=== PATIENT | female | born 1940 | race Caucasian/White ===

== ENCOUNTER 2017-03-02 16:01 | Inpatient (IN) | payer OTHER ==
[~2017-03-02] VITALS: Ht 154.9 cm; Wt 107.0 kg
[2017-03-02 16:01] VITALS: BP 141/66; PULSE 91; RESP 26; TEMP 98.9; O2SAT 96
[~2017-03-02 16:01] MED LIST: ALBMDI INH; ASPI81TA2 PO; CHOL100038 PO; CLOP75TA2 PO; ESOM40CA PO; FLUT1DIS INH; GABA-529 PO; HYDR-1189 PO; HYT1 PO; LEVO25TA58 PO; PLA200 PO; PRED5TAB PO; SPIR50TA PO; VALS80TA2 PO; VEN2 PO; [UNRECOGNIZED DRUG - OTHER] PO
--- NOTE | 2017-03-02 16:10 | NUR ---
Pt placed to ER bed 06, to gown and cardiac technician. Pt report given to SAMSON Burgos.
--- NOTE | 2017-03-02 16:12 | NUR ---
Alert and oriented x4. Daughter present. Patient states that she has had shortness of breath and non productive cough since . States was prescribed predisone and amoxicillin 1 week ago for bronchitis (not yet finished with medications), but "medically cleared by doctor" and did not feel short of breath at the time. Denies any chest pain, pressure, radiating pain, dizziness or palpitations. No other complaints/injuries per patient or noted.
--- NOTE | 2017-03-02 16:13 | NUR ---
RT at bedside starting breathing treatment
[2017-03-02] MEDS ORDERED: ALBUTEROL SULFATE 0.083% 2.5 MG/3 ML VIAL.NEB IH ONE ×2 (16:15→16:45)
[2017-03-02] MEDS ORDERED: IPRATROPIUM BROM 0.5 MG/2.5 ML VIAL.NEB (ATROVENT) IH ONE ×2 (16:15→16:45)
[2017-03-02] MEDS ORDERED: LEVO125T PO (16:44)
[2017-03-02] MEDS ORDERED: PRED5TAB PO (16:44)
[2017-03-02] MEDS ORDERED: methylPREDNISolone SOD SUCC/PF 62.5 MG/ML VIAL IVP ONE (16:45)
[2017-03-02] MEDS ORDERED: MAGNESIUM SULFATE 1 GM in NS 50 ML IV ONE (16:45)
--- NOTE | 2017-03-02 16:45 | NUR ---
Patient states that she is beginning to feel relief following breathing treatment
[2017-03-02 16:46] LABS: MONOCYTES # (AUTO) 0.5 K/uL (0.0-1.0); NEUTROPHILS # (AUTO) 7.7 K/uL (1.8-7.7); WHITE BLOOD COUNT (AUTO) 9.2 K/uL (4.8-10.8)
[2017-03-02] MEDS ORDERED: NITR0.4T6 SL (16:47)
[2017-03-02] MEDS ORDERED: NALT50TA PO (16:50)
[2017-03-02] MEDS ORDERED: CHOL200026 PO (16:50)
--- NOTE | 2017-03-02 16:50 | NUR ---
Medication reconciliation completed with information provided by patient. Any prior medication reconciliation on file was reviewed and corrected.
[2017-03-02 16:54] LABS: INR 1.1 (0.8-1.2); PROTHROMBIN TIME 11.9 SECS (9.5-12.5)
[2017-03-02] MEDS ORDERED: MAGNESIUM SULFATE 1 GM/2 ML VIAL ONE (17:00)
[2017-03-02] MEDS ORDERED: NS 250 ML IV ONE (17:00)
[2017-03-02 17:11] LABS: BASOPHILS % (AUTO) 0.2 % (0.0-2.0); EOSINOPHILS % (AUTO) 0.1 % (0.0-4.0); HEMATOCRIT 38.6 % (36-48); HEMOGLOBIN 12.5 g/dL (12.0-16.0); LYMPHOCYTES % (AUTO) 11.3 % (20.5-51.5); MEAN CORPUSCULAR HEMOGLOBIN 26 pg (27-31); MEAN CORPUSCULAR HGB CONC 32 % (32-36); MEAN CORPUSCULAR VOLUME 81 fL (79.0-98.0); MONOCYTES % (AUTO) 5.7 % (1.7-9.3); NEUTROPHILS % (AUTO) 82.7 % (40.0-70.0); PLATELET COUNT (AUTO) 190 K/uL (130-430); RED BLOOD CELL COUNT(AUTO) 4.75 MIL/uL (4.2-6.2); RED CELL DISTRIBUTION WIDTH 14.3 % (9.0-15.0)
[2017-03-02 17:13] LABS: BLOOD GAS PH 7.543 (7.350-7.450)
--- NOTE | 2017-03-02 17:13 | NUR ---
Per MD, fluids to be held at this time until labs resulted.
[2017-03-02 17:14] LABS: ABG TOTAL HEMOGLOBIN 13.4 G/dL (12.0-18.0); BLOOD GAS COHb% 0.8 % (0.5-1.5); BLOOD O2Hb% 95.1 % (94.0-97.0)
--- NOTE | 2017-03-02 17:15 | NUR ---
Urine to be collected following breathing treatment (RT at bedside). MD at bedside. Patient tolerating well.
--- NOTE | 2017-03-02 17:15 | NUR ---
Note aracelis in EDM - 03/02/17 at 1720 by SDEDAJ Urine to be collected following breathing treatment (RT at bedside). MD at bedside. Patient tolerating well.
[2017-03-02 17:18] LABS: ANION GAP 13 (5-15); CALCIUM 9.2 mg/dL (8.4-11.0); CHLORIDE 104 mmol/L (98-107); CREATININE 1.45 mg/dL (0.55-1.30); GLUCOSE 146 mg/dL (70-99); POTASSIUM 4.4 mmol/L (3.5-5.1); SODIUM SERUM 140 mmol/L (136-145); UREA NITROGEN, BLOOD 35 mg/dL (8-21)
[2017-03-02 17:25] LABS: ALANINE AMINOTRANSFERASE 10 U/L (12-78); ALBUMIN 3.8 g/dL (3.4-4.8); ASPARTATE AMINOTRANSFERASE 19 U/L (10-37); CREATINE KINASE, TOTAL 334 U/L (26-192); PHOSPHORUS 2.6 mg/dL (2.7-4.5); TOTAL BILIRUBIN 0.7 mg/dL (0.0-1.0); TOTAL PROTEIN, SERUM 6.8 g/dL (6.4-8.3)
[2017-03-02] MEDS ORDERED: ACETYLCYSTEINE 20% 4 ML VIAL (RT) INH ONE (17:30)
[2017-03-02 17:50] LABS: CKMB RELATIVE INDEX 0.7 (0.0-2.9); CREATINE KINASE MB 2.5 ng/mL (0-3.6)
[2017-03-02] MEDS: methylPREDNISolone SOD SUCC/PF 62.5 MG/ML VIAL IVP SCH ×2 (18:00→23:28)
[2017-03-02] MEDS ORDERED: FUROSEMIDE 20 MG/2 ML VIAL IVP ONE (18:00)
[2017-03-02] MEDS ORDERED: ONDANSETRON HCL 4 MG/2 ML VIAL IVP PRN (18:00)
[2017-03-02] MEDS ORDERED: IPRATROPIUM/ALBUTEROL SULFATE 3 ML AMPUL.NEB INH PRN (18:00)
--- NOTE | 2017-03-02 18:00 | NUR ---
Asked Dr. Benson if would like one time order of antibiotics prior to admission, stated will place order.
--- NOTE | 2017-03-02 18:05 | NUR ---
Patient stated that her primary doctor seperates administration of levaquin and plaquenil by a few days due to high risk of her getting interaction. Patient states last plaquenil dose was last night at 11PM. Dr. Benson notified, agreed to not administer for patient safety. Admission nurse Staci notified to check with Dr. Bernstein regarding order of levaquin to ensure patient safety. No new orders received at this time. Addendum: 03/02/17 at 1842 by DEBBIE No new order for administration of another antibiotic at this time per Dr. Benson due to patient's extensive history of allergies and high risk of receiving drug interation. Dr. Bernstein stated is checking patient's chart at [facility].
[2017-03-02] MEDS ORDERED: LEVOFLOXACIN 500 MG/D5W 100 ML IV ONE (18:15)
--- NOTE | 2017-03-02 18:15 | NUR ---
Unable to obtain urine sample, patient refused to urinate on bed loja/bedside commode or have a in and out catheter. Can not ambulate patient due to shortness of breath. Dr. Benson aware. Will endorse to tele admission nurse.
--- NOTE | 2017-03-02 18:29 | NUR ---
ADMISSION NOTE Received patient from ER via octavio, received report from Loretta DAVIES. Patient admitted with diagnosis of SOB,ASTHMATICUS,BRONCHITIS. Patient oriented to hospital routine, call light, toileting and safety-patient verbalized understanding.
[2017-03-02 18:41] VITALS: BP 136/55; PULSE 89; RESP 22; TEMP 98; O2SAT 96
--- NOTE | 2017-03-02 19:02 | NUR ---
Patient will be admitted to care of Dr. Bernstein. Admitted to tele unit. Will go to room 103A. Belongings list completed. Summary report printed. Report given to Staci DAVIES.
[2017-03-02] MEDS: IPRATROPIUM/ALBUTEROL SULFATE 3 ML AMPUL.NEB INH SCH ×2 (19:23→23:27)
[2017-03-02 19:36] VITALS: BP 136/55; PULSE 89
--- NOTE | 2017-03-02 19:45 | NUR ---
ROUNDS PATIENT IN BED, AWAKE, ALERT, ORIENTED, NOT IN DISTRESS, VITALS STABLE. DENIES ANY PAIN AND DISCOMFORT AT THIS TIME. ASSESSMENT DONE AND DOCUMENTED. SEE FLOWSHEET. NEEDS ATTENDED TO. SAFETY AND FALL PRECAUTION MEASURES IN PLACED. BED IN LOW AND LOCKED POSITION. CALL LIGHT PLACED WITHIN REACH.
--- NOTE | 2017-03-02 20:24 | NUR ---
NOTES ASSISTED PATIENT TO THE BEDSIDE COMMODE TO VOID, SENT URINE SPECIMEN TO LAB. WILL CONTINUE TO MONITOR.
[2017-03-02 20:30] LABS: BILIRUBIN,URINE NEGATIVE (NEGATIVE); BLOOD, URINE NEGATIVE (NEGATIVE); CLARITY/URINE CLEAR (CLEAR); COLOR,URINE YELLOW (YELLOW); GLUCOSE,URINE NEGATIVE (NEGATIVE); KETONES,URINE NEGATIVE (NEGATIVE); LEUKOCYTE ESTERASE ,URINE NEGATIVE (NEGATIVE); NITRITE, URINE NEGATIVE (NEGATIVE); PROTEIN URINE NEGATIVE (NEGATIVE); UROBILINOGEN,URINE 0.2 (0.2-1.0)
--- NOTE | 2017-03-02 20:41 | NUR ---
PAGED: I PAGED DR. BURDEN @ 2040 I SPOKE WITH PEG SEGURA MOTION PICTURE SET GRIP SHE CALLED US BACK @ [phone]
[2017-03-02] MEDS: guaiFENesin/DEXTROMETHORPHAN 1 EACH TAB.ER.12H PO SCH (21:00)
[2017-03-02] MEDS: GABAPENTIN 300 MG CAPSULE PO SCH (21:18)
[2017-03-02] MEDS: SPIRONOLACTONE 50 MG TABLET (ALDACTONE) PO SCH (21:21)
[2017-03-02] MEDS: ACETAMINOPHEN 325 MG TABLET PO PRN (21:25)
--- NOTE | 2017-03-02 21:59 | NUR ---
NOTES CALLED AND TALKED TO DR. SEO, THE E LEARNING SPECIALIST, GOT AN ORDER FOR LOVENOX 30 MG SUBCUT RECOMMENDED BY OUTSIDE PHARMACY SINCE PATIENT'S CRCL=24.65. WILL CONTINUE TO MONITOR.
[2017-03-02] MEDS: NORMAL SALINE 5 ML DISP.SYRIN IVF SCH (23:28)
--- NOTE | 2017-03-03 | NUR ---
PATIENT RESTING: Patient resting quietly. No acute distress noted. Vital signs within normal range.
[2017-03-03 00:19] VITALS: BP 121/71; PULSE 86; RESP 20; TEMP 96.1; O2SAT 95
--- NOTE | 2017-03-03 02:40 | NUR ---
ROUNDS PATIENT ASLEEP,VITALS STABLE, WILL CONTINUE TO MONITOR.
[2017-03-03] MEDS: IPRATROPIUM/ALBUTEROL SULFATE 3 ML AMPUL.NEB INH SCH ×6 (03:06→23:13)
--- NOTE | 2017-03-03 04:00 | NUR ---
PATIENT RESTING: Patient resting quietly. No acute distress noted. Vital signs within normal range.
[2017-03-03 04:42] VITALS: BP 154/65; PULSE 94; RESP 21; TEMP 97.6; O2SAT 95
[2017-03-03] MEDS: methylPREDNISolone SOD SUCC/PF 62.5 MG/ML VIAL IVP SCH ×4 (06:13→23:14)
[2017-03-03] MEDS: NORMAL SALINE 5 ML DISP.SYRIN IVF SCH ×3 (06:13→23:14)
[2017-03-03 06:57] LABS: BASOPHILS % (AUTO) 0.1 % (0.0-2.0); EOSINOPHILS % (AUTO) 0.1 % (0.0-4.0); HEMATOCRIT 37.1 % (36-48); HEMOGLOBIN 12.2 g/dL (12.0-16.0); LYMPHOCYTES # (AUTO) 0.8 K/uL (1.0-5.5); LYMPHOCYTES % (AUTO) 8.3 % (20.5-51.5); MEAN CORPUSCULAR HEMOGLOBIN 27 pg (27-31); MEAN CORPUSCULAR HGB CONC 33 % (32-36); MEAN CORPUSCULAR VOLUME 81 fL (79.0-98.0); MONOCYTES # (AUTO) 0.2 K/uL (0.0-1.0); NEUTROPHILS # (AUTO) 8.7 K/uL (1.8-7.7); NEUTROPHILS % (AUTO) 89.5 % (40.0-70.0); PLATELET COUNT (AUTO) 179 K/uL (130-430); RED BLOOD CELL COUNT(AUTO) 4.58 MIL/uL (4.2-6.2); WHITE BLOOD COUNT (AUTO) 9.7 K/uL (4.8-10.8)
--- NOTE | 2017-03-03 06:59 | NUR ---
CLOSING NOTES PATIENT AWAKE, VITALS STABLE, NO PAIN AND DISCOMFORT AT THIS TIME. ALL NEEDS ATTENDED TO. SAFETY AND FALL PRECAUTION MEASURES MAINTAINED. CALL LIGHT PLACED WITHIN REACH.
[2017-03-03] MEDS ORDERED: LEVOTHYROXINE SODIUM 0.125 MG TABLET PO SCH (07:00)
[2017-03-03 07:34] LABS: ANION GAP 12 (5-15); CALCIUM 9.2 mg/dL (8.4-11.0); CHLORIDE 102 mmol/L (98-107); CREATININE 1.35 mg/dL (0.55-1.30); GLUCOSE 221 mg/dL (70-99); PHOSPHORUS 3.9 mg/dL (2.7-4.5); SODIUM SERUM 138 mmol/L (136-145); UREA NITROGEN, BLOOD 34 mg/dL (8-21)
[2017-03-03 08:00] VITALS: PULSE 87; RESP 2; TEMP 98; O2SAT 95
--- NOTE | 2017-03-03 08:00 | NUR ---
initial notes rec patient awake alert and sitting at the edge of the bed. ivl on the l forearm intact and no infiltration noted. res easy and unlabored and no sob noted. with on and off productive cough. bed in low position and side rails up and locked. daughter in the room with patient and waiting for dr damico.
[2017-03-03] MEDS ORDERED: ENOXAPARIN SODIUM 40 MG/0.4 ML SYRINGE SUBCUT SCH (09:00)
[2017-03-03] MEDS ORDERED: VALSARTAN 80 MG TABLET (DIOVAN) PO SCH (09:00)
[2017-03-03] MEDS: CLOPIDOGREL BISULFATE 75 MG TABLET PO SCH (09:08)
[2017-03-03] MEDS: ASPIRIN 81 MG TAB.CHEW PO SCH (09:08)
[2017-03-03] MEDS: SPIRONOLACTONE 50 MG TABLET (ALDACTONE) PO SCH ×2 (09:09→21:25)
[2017-03-03] MEDS: ENOXAPARIN SODIUM 30 MG/0.3 ML SYRINGE SUBCUT SCH (09:10)
--- NOTE | 2017-03-03 10:00 | NUR ---
rounds seen by dr damico at bedside.no acute distress noted.
[2017-03-03] MEDS ORDERED: ISOSORBIDE MONONITRATE 30 MG TAB.ER.24H PO ONE (10:30)
[2017-03-03] MEDS ORDERED: TERAZOSIN HCL 1 MG CAPSULE (HYTRIN) PO ONE (10:45)
[2017-03-03 12:00] VITALS: BP 111/70; PULSE 79; RESP 22; TEMP 98; O2SAT 97
--- NOTE | 2017-03-03 12:00 | NUR ---
rounds denies pain. ambulated to the br and patrice well with a walker. call light within reached. no sob noted.
--- NOTE | 2017-03-03 12:21 | NUR ---
SPOKE WITH PT AT BEDSIDE. SHE IS ALERT. LIVE IN HOME. GRANDSON LIVES WITH HER AND ASSISTS NEEDED. SHE HAS A NEBUL AND A FWW. WILL FOLLOW HOSP COURSE/reggie kelly/peggy/[facility] [phone]
[2017-03-03] MEDS: guaiFENesin/DEXTROMETHORPHAN 1 EACH TAB.ER.12H PO SCH ×2 (13:40→21:26)
--- NOTE | 2017-03-03 14:00 | NUR ---
rounds resting comfortably and no sob noted.sleeps at intervals.
[2017-03-03 15:27] VITALS: BP 115/57; PULSE 82; RESP 19; TEMP 98; O2SAT 93
[2017-03-03] MEDS ORDERED: COMMUNICATION ORDER XX ONE (15:45)
--- NOTE | 2017-03-03 16:00 | NUR ---
rounds sleeps at intervals. no c/o pain . call light within reached.
[2017-03-03] MEDS: TERAZOSIN 1 MG PO SCH (17:25)
[2017-03-03] MEDS: LEVOFLOXACIN 250 MG/D5W 50 ML IV SCH (17:27)
--- NOTE | 2017-03-03 18:40 | NUR ---
closing notes due meds given as ordered.hob slightly elevated with o2 at 2 liters. no sob noted. with on and off productive cough. call light within reached. fall/ safety precaution reinforced.
--- NOTE | 2017-03-03 19:15 | NUR ---
initial nursing notes: Patient awake in bed. Patient is on 2L/min oxygen via nasal cannula. Patient has an IV access on the left forearm.
[2017-03-03 19:31] VITALS: BP 122/68; PULSE 86; RESP 18; TEMP 97.2; O2SAT 96
[2017-03-03] MEDS ORDERED: TERAZOSIN HCL 1 MG CAPSULE (HYTRIN) PO SCH (21:00)
--- NOTE | 2017-03-03 21:15 | NUR ---
nursing rounds: Patient is ambulatory to the bathroom using a walker. Patient has no episode of falls and no injuries.
[2017-03-03] MEDS: LACTOBACILLUS RHAMNOSUS GG 1 CAP CAPSULE PO SCH (21:26)
[2017-03-03] MEDS: GABAPENTIN 300 MG CAPSULE PO SCH (21:26)
[2017-03-03] MEDS: DIOVAN 80 MG PO SCH (21:27)
[2017-03-03] MEDS: ACETAMINOPHEN 325 MG TABLET PO PRN (23:10)
--- NOTE | 2017-03-03 23:15 | NUR ---
nursing rounds: Patient is receiving breathing treatment.
[2017-03-04] VITALS (7 sets, daily range): BP systolic 100–153; BP diastolic 48–85; PULSE 67–88; RESP 16–20; TEMP 97–98.6; O2SAT 91–99; Ht 154.9 cm; Wt 107.0 kg
--- NOTE | 2017-03-04 00:30 | NUR ---
nursing rounds: Patient received pain medication for her rib pain 01/17. Pain medication was effective.
[2017-03-04] MEDS: IPRATROPIUM/ALBUTEROL SULFATE 3 ML AMPUL.NEB INH SCH ×6 (02:18→23:28)
--- NOTE | 2017-03-04 02:30 | NUR ---
nursing rounds: Patient asleep in bed. Patient has no shortness of breath.
--- NOTE | 2017-03-04 04:30 | NUR ---
nursing rounds: Patient sleeping in bed. Patient has no respiratory distress.
[2017-03-04] MEDS: methylPREDNISolone SOD SUCC/PF 62.5 MG/ML VIAL IVP SCH ×4 (05:33→23:37)
[2017-03-04] MEDS: NORMAL SALINE 5 ML DISP.SYRIN IVF SCH ×3 (05:34→21:01)
--- NOTE | 2017-03-04 06:03 | NUR ---
nursing rounds: Patient calmly resting in bed. Call light within patient's reach.
--- NOTE | 2017-03-04 07:38 | NUR ---
closing nursing notes: Patient is awake, alert and oriented X 4. Patient is in no acute respiratory distress. No episodes of fall and no injuries throughout the cnc machinist 2nd shift. Provided nursing report to incoming morning shift nurses, SAMSON Blackwell, at patient's bedside.
[2017-03-04 07:47] LABS: BASOPHILS # (AUTO) 0.1 K/uL (0.0-0.2); BASOPHILS % (AUTO) 0.5 % (0.0-2.0); EOSINOPHILS % (AUTO) 0.1 % (0.0-4.0); HEMATOCRIT 37.6 % (36-48); HEMOGLOBIN 12.1 g/dL (12.0-16.0); LYMPHOCYTES # (AUTO) 0.9 K/uL (1.0-5.5); MEAN CORPUSCULAR HEMOGLOBIN 26 pg (27-31); MEAN CORPUSCULAR HGB CONC 32 % (32-36); MEAN CORPUSCULAR VOLUME 81 fL (79.0-98.0); MONOCYTES # (AUTO) 1.2 K/uL (0.0-1.0); MONOCYTES % (AUTO) 7.6 % (1.7-9.3); NEUTROPHILS # (AUTO) 13.6 K/uL (1.8-7.7); NEUTROPHILS % (AUTO) 85.8 % (40.0-70.0); PLATELET COUNT (AUTO) 199 K/uL (130-430); RED BLOOD CELL COUNT(AUTO) 4.63 MIL/uL (4.2-6.2); RED CELL DISTRIBUTION WIDTH 14.3 % (9.0-15.0)
[2017-03-04 07:53] LABS: ALANINE AMINOTRANSFERASE 25 U/L (12-78); ALBUMIN 3.5 g/dL (3.4-4.8); ANION GAP 7 (5-15); ASPARTATE AMINOTRANSFERASE 19 U/L (10-37); CALCIUM 9.1 mg/dL (8.4-11.0); CHLORIDE 103 mmol/L (98-107); CREATININE 1.41 mg/dL (0.55-1.30); GLUCOSE 198 mg/dL (70-99); POTASSIUM 3.9 mmol/L (3.5-5.1); SODIUM SERUM 137 mmol/L (136-145); TOTAL BILIRUBIN 0.7 mg/dL (0.0-1.0); TOTAL PROTEIN, SERUM 6.3 g/dL (6.4-8.3); UREA NITROGEN, BLOOD 38 mg/dL (8-21)
[2017-03-04 08:00] LABS: WHITE BLOOD COUNT (AUTO) 15.8 K/uL (4.8-10.8)
--- NOTE | 2017-03-04 08:00 | NUR ---
opening notes pt in bed, denies pain, no sob. no distress. patient is alert and oriented 4x, vitals wnl, afebrile. call light in reach, bed in low position, will continue to monitor.
[2017-03-04] MEDS: CLOPIDOGREL BISULFATE 75 MG TABLET PO SCH (09:17)
[2017-03-04] MEDS: ASPIRIN 81 MG TAB.CHEW PO SCH (09:18)
[2017-03-04] MEDS: ISOSORBIDE MONONITRATE 30 MG TAB.ER.24H PO SCH (09:18)
[2017-03-04] MEDS: LACTOBACILLUS RHAMNOSUS GG 1 CAP CAPSULE PO SCH ×2 (09:18→20:57)
[2017-03-04] MEDS: SPIRONOLACTONE 50 MG TABLET (ALDACTONE) PO SCH ×2 (09:19→20:58)
[2017-03-04] MEDS: ENOXAPARIN SODIUM 30 MG/0.3 ML SYRINGE SUBCUT SCH (09:19)
[2017-03-04] MEDS: TERAZOSIN 1 MG PO SCH ×2 (09:23→20:59)
[2017-03-04] MEDS: DIOVAN 80 MG PO SCH ×2 (09:24→20:59)
[2017-03-04] MEDS: guaiFENesin/DEXTROMETHORPHAN 1 EACH TAB.ER.12H PO SCH ×2 (09:25→20:59)
[2017-03-04] MEDS: LEVOTHYROXINE 0.125 MG PO SCH (09:33)
--- NOTE | 2017-03-04 10:00 | NUR ---
rounding notes pt in bed, denies pain, no sob. no distress. resting comfortably in bed. visitor at bedside. call light in reach, bed in low position, will continue to monitor.
--- NOTE | 2017-03-04 14:00 | NUR ---
rounding notes pt in bed, denies pain, no sob. no distress. resting comfortably in bed. visitor at bedside.
[2017-03-04] MEDS: SODIUM CHLORIDE 0.65% NASAL SPRAY NS PRN ×2 (15:04→21:01)
[2017-03-04] MEDS: LEVOFLOXACIN 250 MG/D5W 50 ML IV SCH (17:31)
--- NOTE | 2017-03-04 18:10 | NUR ---
closing nursing notes: Patient AAOX 4. Patient is in no acute respiratory distress. No untoward incident this shift. all morning shift meds offered and taken. bed in low positon.call light in reach. will endorse to night rn.
--- NOTE | 2017-03-04 20:05 | NUR ---
OPENING NOTES PATIENT IS A/OX4. NO SIGN OF DISTRESS. BREATHING IS NON LABORED. IV IS PATENT AND SHOWS NO SIGNS OF COMPLICATIONS. VITAL SIGNS ARE STABLE. O2 IS ON AND FLOWING. WALKER IS AT BEDSIDE. PATIENT INSTRUCTED TO CALL FOR ASSISTANCE. SAFETY MEASURES ARE IN PLACE. PATIENT REFUSED BED ALARM. PATIENT STATED THAT HER DAUGHTER IS STAYING TO HELP HER. CALL LIGHT IS WITHIN REACH. DAUGHTER IS AT BEDSIDE. WILL CONTINUE TO MONITOR.
[2017-03-04] MEDS: GABAPENTIN 300 MG CAPSULE PO SCH (20:57)
--- NOTE | 2017-03-04 21:15 | NUR ---
ROUNDS PATIENT AMBULATED TO THE RESTROOM AND BACK INTO WITH USE OF A WALKER. GAIT IS STEADY WITH WALKER. PATIENT IS IN BED RESTING COMFORTABLY.
--- NOTE | 2017-03-04 22:47 | NUR ---
ROUNDS PATIENT IS IN BED SITTING UP WATCHING TV. NO SIGNS OF DISTRESS. BREATHING IS NON LABORED. O2 IS ON AND FLOWING. SAFETY MEASURES ARE IN PLACE. WILL CONTINUE TO MONITOR.
[2017-03-04] MEDS: ACETAMINOPHEN 325 MG TABLET PO PRN (23:38)
[2017-03-05] VITALS (8 sets, daily range): BP systolic 116–141; BP diastolic 51–75; PULSE 73–93; RESP 17–19; TEMP 96.8–98.8; O2SAT 93–95
--- NOTE | 2017-03-05 01:01 | NUR ---
ROUNDS PATIENT IS IN BED RESTING. NO SIGNS OF DISTRESS. BREATHING IS NON LABORED. CALL LIGHT IS WITHIN REACH. SAFETY MEASURES ARE IN PLACE. WILL CONTINUE TO MONITOR.
--- NOTE | 2017-03-05 03:29 | NUR ---
ROUNDS PATIENT IS IN BED SLEEPING. NO SIGNS OF DISTRESS. BREATHING IS NON LABORED. O2 IS ON AND FLOWING. SAFETY MEASURES ARE IN PLACE. DAUGHTER IS SLEEPING AT BEDSIDE. CALL LIGHT IS WITHIN REACH. WILL CONTINUE TO MONITOR.
[2017-03-05] MEDS: IPRATROPIUM/ALBUTEROL SULFATE 3 ML AMPUL.NEB INH SCH ×6 (03:42→22:07)
--- NOTE | 2017-03-05 05:35 | NUR ---
ROUNDS PATIENT IS IN BED SLEEPING. BREATHING IS NON LABORED. NO SIGNS OF DISTRESS. O2 IS ON AND FLOWING. SAFETY MEASURES ARE IN PLACE. CALL LIGHT IS WITHIN REACH. DAUGHTER IS AT BEDSIDE. WILL CONTINUE TO MONITOR.
[2017-03-05] MEDS: methylPREDNISolone SOD SUCC/PF 62.5 MG/ML VIAL IVP SCH ×4 (06:08→23:54)
[2017-03-05] MEDS: NORMAL SALINE 5 ML DISP.SYRIN IVF SCH ×3 (06:08→21:04)
[2017-03-05] MEDS: LEVOTHYROXINE 0.125 MG PO SCH (06:09)
[2017-03-05] MEDS: SODIUM CHLORIDE 0.65% NASAL SPRAY NS PRN ×3 (06:10→17:27)
--- NOTE | 2017-03-05 06:36 | NUR ---
CLOSING NOTES PATIENT IS IN BED SITTING UP AND TALKING TO DAUGHTER. NO SIGNS OF DISTRESS. BREATHING IS NON LABORED. O2 IS ON AND FLOWING. IV IS PATENT AND SHOWS NO SIGNS OF COMPLICATIONS. SAFETY MEASURES ARE IN PLACE. CALL LIGHT IS WITHIN REACH. WILL ENDORSE ALL CARE TO THE MORNING NURSE.
[2017-03-05 07:39] LABS: HEMATOCRIT 37.8 % (36-48); HEMOGLOBIN 12.6 g/dL (12.0-16.0); MEAN CORPUSCULAR HEMOGLOBIN 27 pg (27-31); MEAN CORPUSCULAR HGB CONC 33 % (32-36); MEAN CORPUSCULAR VOLUME 81 fL (79.0-98.0); PLATELET COUNT (AUTO) 199 K/uL (130-430); RED BLOOD CELL COUNT(AUTO) 4.68 MIL/uL (4.2-6.2); RED CELL DISTRIBUTION WIDTH 13.9 % (9.0-15.0); WHITE BLOOD COUNT (AUTO) 12.3 K/uL (4.8-10.8)
[2017-03-05 07:52] LABS: ANION GAP 9 (5-15); CALCIUM 9.2 mg/dL (8.4-11.0); CHLORIDE 102 mmol/L (98-107); CREATININE 1.63 mg/dL (0.55-1.30); GLUCOSE 207 mg/dL (70-99); SODIUM SERUM 135 mmol/L (136-145); UREA NITROGEN, BLOOD 39 mg/dL (8-21)
--- NOTE | 2017-03-05 08:00 | NUR ---
OPENING NOTES, RECEIVED PATIENT IN BED, PATIENT IS A/OX4. NO SIGN OF DISTRESS. NO SHORTNESS OF BREATH. IV IS PATENT AND SHOWS NO SIGNS OF COMPLICATIONS. VITAL SIGNS ARE STABLE, WNL. O2 IS OFF O2 SAT IS 88. CONNECTED BACK TO O2 2L NC, O2 SAT DANIEL T UP TO 94%. WALKER IS AT BEDSIDE. PATIENT INSTRUCTED TO CALL FOR ASSISTANCE. SAFETY MEASURES ARE IN PLACE. PATIENT BED ALARM ON, CALL LIGHT IN REACH, BED IN LOW POSITION. WILL CONTINUE TO MONITOR.
[2017-03-05] MEDS: TERAZOSIN 1 MG PO SCH ×2 (08:15→21:03)
[2017-03-05] MEDS: DIOVAN 80 MG PO SCH ×2 (08:16→21:02)
[2017-03-05] MEDS: LACTOBACILLUS RHAMNOSUS GG 1 CAP CAPSULE PO SCH ×2 (08:18→21:01)
[2017-03-05] MEDS: guaiFENesin/DEXTROMETHORPHAN 1 EACH TAB.ER.12H PO SCH ×2 (08:18→21:02)
[2017-03-05] MEDS: CLOPIDOGREL BISULFATE 75 MG TABLET PO SCH (08:19)
[2017-03-05] MEDS: SPIRONOLACTONE 50 MG TABLET (ALDACTONE) PO SCH ×2 (08:19→21:02)
[2017-03-05] MEDS: ISOSORBIDE MONONITRATE 30 MG TAB.ER.24H PO SCH (08:20)
[2017-03-05] MEDS: ENOXAPARIN SODIUM 30 MG/0.3 ML SYRINGE SUBCUT SCH (08:21)
[2017-03-05] MEDS: ASPIRIN 81 MG TAB.CHEW PO SCH (08:21)
--- NOTE | 2017-03-05 10:00 | NUR ---
ROUNDING NOTES PT IN BED, DENIES PAIN, NO SOB, RESTING COMFORTABLY IN BED, CALL LIGHT IN REACH, BED IN LOW POSITION. WALKER NEAR BED. INSTRUCTED TO CALL FOR PAIN MED AND ANY ASSISTANCE ANYTIME.
[2017-03-05 10:16] LABS: ATYPICAL LYMPHOCYTES % 0 % (0-0); BAND % (MANUAL) 0 % (0-6); BASOPHILS % (MANUAL) 0 % (0-2); EOSINOPHILS % (MANUAL) 0 % (0-7); LYMPHOCYTES % (MANUAL) 6 % (20-46); MONOCYTES % (MANUAL) 5 % (0-11)
--- NOTE | 2017-03-05 12:00 | NUR ---
ROUNDING NOTES, PT IN BED, NO C/O PAIN THIS TIME. NO SOB, NO DISTRESS, CALL LIGHT IN REACH, BED IN LOW POSITION. INSTRUCTED TO CALL FOR ASSIST AND PAIN MED. WILL CONTINUE TO MONITOR.
--- NOTE | 2017-03-05 14:00 | NUR ---
ROUNDING NOTES, PT IN BED,DENIES PAIN. NO SOB, NO DISTRESS, CALL LIGHT IN REACH, BED IN LOW POSITION. IV ACCESS FLUSHED. INSTRUCTED TO CALL FOR ASSIST AND PAIN MED. WILL CONTINUE TO MONITOR.
--- NOTE | 2017-03-05 16:07 | NUR ---
ROUNDING NOTES, PT IN BED, VISITOR AT BEDSIDE. NO PAIN THIS TIME. NO SOB, NO DISTRESS, CALL LIGHT IN REACH, BED IN LOW POSITION. INSTRUCTED TO CALL FOR ASSIST AND PAIN MED. WILL CONTINUE TO MONITOR.
[2017-03-05] MEDS: LEVOFLOXACIN 250 MG/D5W 50 ML IV SCH (17:25)
--- NOTE | 2017-03-05 18:00 | NUR ---
CLOSING NOTES, PT IS ALERT AND ORIENTED, DENIES PAIN , NO SOB, NO DISTRESS, NO UNTOWARD INCIDENT THIS SHIFT. ALL MEDS OFFERED AND TAKEN. CALL LIGHT IN REACH, BED IN LOW POSITION. SAFETY AND FALL PRECAUTION IN PLACE. WILL ENDORSE TO NIGHT NURSE.
--- NOTE | 2017-03-05 20:07 | NUR ---
OPENING NOTES PATIENT IS A/OX4. NO SIGNS OF DISTRESS. BREATHING IS NON LABORED. O2 IS ON AND FLOWING. VITAL SIGNS ARE STABLE. PATIENT HAS NO COMPLAINTS OF PAIN. PATIENT INSTRUCTED TO CALL FOR ASSISTANCE. CALL LIGHT IS WITHIN REACH. SAFETY MEASURES ARE IN PLACE. PATIENT REFUSES BED ALARM. PATIENT STATED THAT HER SON IS HELPING HER. WILL CONTINUE TO MONITOR.
[2017-03-05] MEDS: GABAPENTIN 300 MG CAPSULE PO SCH (21:01)
--- NOTE | 2017-03-05 21:15 | NUR ---
ROUNDS PATIENT WAS GIVEN APPLESAUCE.
--- NOTE | 2017-03-05 22:10 | NUR ---
ROUNDS PATIENT IS IN BED RESTING COMFORTABLY AND WATCHING TV. NO SIGNS OF DISTRESS. BREATHING IS NON LABORED. O2 IS ON FLOWING. SAFETY MEASURES ARE IN PLACE. CALL LIGHT IS WITHIN REACH. WILL CONTINUE TO MONITOR.
--- NOTE | 2017-03-05 23:50 | NUR ---
ROUNDS PATIENT IS RESTING COMFORTABLY. NO SIGNS OF DISTRESS. BREATHING IS NON LABORED. SAFETY MEASURES ARE IN PLACE. CALL LIGHT IS WITHIN REACH. DAUGHTER IS AT BEDSIDE SLEEPING IN A CHAIR. WILL CONTINUE TO MONITOR.
[2017-03-06] MEDS: IPRATROPIUM/ALBUTEROL SULFATE 3 ML AMPUL.NEB INH SCH ×6 (02:11→23:20)
--- NOTE | 2017-03-06 02:40 | NUR ---
ROUNDS PATIENT IS IN BED SLEEPING. NO SIGNS OF DISTRESS. BREATHING IS NON LABORED. SAFETY MEASURES ARE IN PLACE. CALL LIGHT IS WITHIN REACH. DAUGHTER IS AT BEDSIDE.
[2017-03-06 05:10] VITALS: BP 120/62; PULSE 73; RESP 16; TEMP 98.8; O2SAT 93
--- NOTE | 2017-03-06 05:27 | NUR ---
ROUNDS PATIENT IS IN BED SLEEPING. NO SIGNS OF DISTRESS. BREATHING IS NON LABORED. SAFETY MEASURES ARE IN PLACE. WILL CONTINUE TO MONITOR. DAUGHTER IS AT BEDSIDE.
[2017-03-06] MEDS: SODIUM CHLORIDE 0.65% NASAL SPRAY NS PRN ×3 (06:20→17:41)
[2017-03-06] MEDS: methylPREDNISolone SOD SUCC/PF 62.5 MG/ML VIAL IVP SCH ×4 (06:20→23:09)
[2017-03-06] MEDS: LEVOTHYROXINE 0.125 MG PO SCH (06:21)
[2017-03-06] MEDS: NORMAL SALINE 5 ML DISP.SYRIN IVF SCH ×3 (06:22→20:57)
--- NOTE | 2017-03-06 06:57 | NUR ---
CLOSING NOTES PATIENT IS IN BED SITTING UP AND RESTING COMFORTABLY. NO SIGNS OF DISTRESS. BREATHING IS NON LABORED. O2 IS ON AND FLOWING. CALL LIGHT IS WITHIN REACH. SAFETY MEASURES ARE IN PLACE. DAUGHTER IS AT BEDSIDE. WILL ENDORSE ALL CARE TO THE MORNING NURSE.
--- NOTE | 2017-03-06 07:25 | NUR ---
AM ROUNDS: PATIENT ON BREATHING TREATMENT.REPORT GIVEN AT BEDSIDE BY ROBERT JOHNSON NURSE. CALL LIGHT WITH IN REACH. STABLE.
[2017-03-06 07:29] LABS: HEMATOCRIT 38.4 % (36-48); HEMOGLOBIN 12.5 g/dL (12.0-16.0); LYMPHOCYTES # (AUTO) 0.7 K/uL (1.0-5.5); LYMPHOCYTES % (AUTO) 5.4 % (20.5-51.5); MEAN CORPUSCULAR HEMOGLOBIN 26 pg (27-31); MEAN CORPUSCULAR HGB CONC 33 % (32-36); MEAN CORPUSCULAR VOLUME 81 fL (79.0-98.0); MONOCYTES # (AUTO) 0.6 K/uL (0.0-1.0); NEUTROPHILS % (AUTO) 89.6 % (40.0-70.0); PLATELET COUNT (AUTO) 184 K/uL (130-430); RED BLOOD CELL COUNT(AUTO) 4.76 MIL/uL (4.2-6.2); RED CELL DISTRIBUTION WIDTH 14.3 % (9.0-15.0); WHITE BLOOD COUNT (AUTO) 12.3 K/uL (4.8-10.8)
[2017-03-06 07:48] LABS: ANION GAP 5 (5-15); CALCIUM 9.2 mg/dL (8.4-11.0); CHLORIDE 105 mmol/L (98-107); CREATININE 1.34 mg/dL (0.55-1.30); GLUCOSE 221 mg/dL (70-99); POTASSIUM 4.4 mmol/L (3.5-5.1); SODIUM SERUM 138 mmol/L (136-145); UREA NITROGEN, BLOOD 37 mg/dL (8-21)
[2017-03-06 09:14] VITALS: BP 135/64; PULSE 89; RESP 20; TEMP 99.3; O2SAT 96
[2017-03-06] MEDS: ASPIRIN 81 MG TAB.CHEW PO SCH (09:15)
[2017-03-06] MEDS: ISOSORBIDE MONONITRATE 30 MG TAB.ER.24H PO SCH (09:16)
[2017-03-06] MEDS: LACTOBACILLUS RHAMNOSUS GG 1 CAP CAPSULE PO SCH ×2 (09:16→20:57)
[2017-03-06] MEDS: CLOPIDOGREL BISULFATE 75 MG TABLET PO SCH (09:16)
[2017-03-06] MEDS: SPIRONOLACTONE 50 MG TABLET (ALDACTONE) PO SCH ×2 (09:16→20:57)
[2017-03-06] MEDS: TERAZOSIN 1 MG PO SCH ×2 (09:17→20:58)
[2017-03-06] MEDS: DIOVAN 80 MG PO SCH ×2 (09:17→20:57)
[2017-03-06] MEDS: guaiFENesin/DEXTROMETHORPHAN 1 EACH TAB.ER.12H PO SCH ×2 (09:18→20:56)
[2017-03-06] MEDS: ENOXAPARIN SODIUM 30 MG/0.3 ML SYRINGE SUBCUT SCH (09:18)
--- NOTE | 2017-03-06 09:38 | NUR ---
meds: tolerated all po meds. needs attended to.
--- NOTE | 2017-03-06 10:28 | NUR ---
rounds: assisted patient to the restroom using fww. voided. back to the bed.
--- NOTE | 2017-03-06 11:53 | NUR ---
iv meds: due iv solumedrol given as ordered.ocean nasal spray given per patient's request for congestion.
[2017-03-06 12:59] VITALS: BP 132/70; PULSE 79; RESP 18; TEMP 98; O2SAT 92
--- NOTE | 2017-03-06 14:15 | NUR ---
rounds: assisted to the restroom with assisted fww,then back to bed. stable.
--- NOTE | 2017-03-06 16:20 | NUR ---
rounds: resting. not in any respiratory distress.
[2017-03-06 16:48] VITALS: BP 131/65; PULSE 88; RESP 18; TEMP 98.8; O2SAT 95
[2017-03-06] MEDS: LEVOFLOXACIN 250 MG/D5W 50 ML IV SCH (17:30)
--- NOTE | 2017-03-06 17:43 | NUR ---
meal: dinner served by bark grinder.
--- NOTE | 2017-03-06 18:41 | NUR ---
closing notes: stable. no distress.
[2017-03-06 20:00] VITALS: BP 140/63; PULSE 82; RESP 18; TEMP 97.5; O2SAT 93
--- NOTE | 2017-03-06 20:00 | NUR ---
Initial Notes Received patient laying in bed, awake, alert, oriented. Patient denies any acute distress or pain at this time. Vital signs stable. Breathing is even and unlabored on room air, patent refusing supplemental oxygen at this time. IV site patent/clean/dry. Needs addressed. Educated patient on use of call light for assistance and fall precautions, patient verbalized understanding. Walker at bedside, patient verbalized understanding to call for assistance before getting out of bed. Call light in hand, will continue to monitor.
[2017-03-06] MEDS: GABAPENTIN 300 MG CAPSULE PO SCH (20:56)
--- NOTE | 2017-03-06 22:00 | NUR ---
Rounds Patient resting in bed, awake. Patient denies any acute distress or pain at this time. Breathing even and unlabored. Needs addressed. Call light in hand, will continue to monitor.
[2017-03-07] VITALS: BP 121/58; PULSE 71; RESP 18; TEMP 98; O2SAT 96
--- NOTE | 2017-03-07 | NUR ---
Rounds Patient resting in bed, awake, daughter at bedside. Patient denies any acute distress or pain. Breathing is even and unlabored. Needs addressed. Call light in hand, fall precautions in place. Will continue to monitor.
--- NOTE | 2017-03-07 02:07 | NUR ---
Rounds Patient resting in bed with eyes closed, family at bedside. No distress noted, breathing is even and unlabored. Call light in hand, fall precautions in place. Will continue to monitor for changes and safety.
[2017-03-07] MEDS: IPRATROPIUM/ALBUTEROL SULFATE 3 ML AMPUL.NEB INH SCH ×3 (03:35→11:00)
--- NOTE | 2017-03-07 04:26 | NUR ---
Rounds Patient resting in bed with eyes closed, family at bedside. No acute distress noted, breathing is even and unlabored. Call light in hand, will continue to monitor.
[2017-03-07] MEDS: methylPREDNISolone SOD SUCC/PF 62.5 MG/ML VIAL IVP SCH (05:14)
[2017-03-07 05:15] VITALS: BP 125/60; PULSE 81; RESP 18; TEMP 97.6; O2SAT 92
[2017-03-07] MEDS: NORMAL SALINE 5 ML DISP.SYRIN IVF SCH (05:15)
[2017-03-07] MEDS: LEVOTHYROXINE 0.125 MG PO SCH (06:05)
--- NOTE | 2017-03-07 06:31 | NUR ---
Closing Notes Patient resting in bed, awake, family at bedside. Patient denies any acute distress or pain at this time. Breathing is even and unlabored. IV site patent/clean/dry, no S/S infection/infiltration. Needs addressed throughout shift. Call light in hand, fall precautions in place. Will continue to monitor for changes and safety, and endorse all patient care/needs to oncoming nurse.
[2017-03-07 07:21] LABS: BASOPHILS % (AUTO) 0.1 % (0.0-2.0); HEMATOCRIT 37.8 % (36-48); HEMOGLOBIN 12.3 g/dL (12.0-16.0); LYMPHOCYTES # (AUTO) 0.9 K/uL (1.0-5.5); LYMPHOCYTES % (AUTO) 8.4 % (20.5-51.5); MEAN CORPUSCULAR HEMOGLOBIN 26 pg (27-31); MEAN CORPUSCULAR HGB CONC 33 % (32-36); MEAN CORPUSCULAR VOLUME 81 fL (79.0-98.0); MONOCYTES # (AUTO) 0.2 K/uL (0.0-1.0); MONOCYTES % (AUTO) 1.5 % (1.7-9.3); NEUTROPHILS # (AUTO) 9.9 K/uL (1.8-7.7); PLATELET COUNT (AUTO) 178 K/uL (130-430); RED BLOOD CELL COUNT(AUTO) 4.66 MIL/uL (4.2-6.2)
[2017-03-07 07:38] LABS: ANION GAP 6 (5-15); CHLORIDE 105 mmol/L (98-107); CREATININE 1.38 mg/dL (0.55-1.30); GLUCOSE 232 mg/dL (70-99); POTASSIUM 4.6 mmol/L (3.5-5.1); SODIUM SERUM 137 mmol/L (136-145); UREA NITROGEN, BLOOD 41 mg/dL (8-21)
--- NOTE | 2017-03-07 08:00 | NUR ---
OPENING NOTE RECEIVED REPORT FROM TRANSCRIPTION TYPIST NURSE. PATIENT RESTING COMFORTABLY, NO COMPLAINTS OF PAIN AT THIS TIME. PATIENT HAS NO NOTABLE SIGNS OF DISTRESS AT THIS TIME. PATIENTS BED IN LOWEST POSITION, FAMILY AT BEDSIDE, CALL LIGHT WITHIN REACH. WILL CONTINUE TO MONITOR PATIENT FOR CHANGES IN STATUS.
[2017-03-07] MEDS: DIOVAN 80 MG PO SCH (08:41)
[2017-03-07] MEDS: ENOXAPARIN SODIUM 30 MG/0.3 ML SYRINGE SUBCUT SCH (08:41)
[2017-03-07] MEDS: CLOPIDOGREL BISULFATE 75 MG TABLET PO SCH (08:42)
[2017-03-07] MEDS: LACTOBACILLUS RHAMNOSUS GG 1 CAP CAPSULE PO SCH (08:42)
[2017-03-07] MEDS: guaiFENesin/DEXTROMETHORPHAN 1 EACH TAB.ER.12H PO SCH (08:42)
[2017-03-07] MEDS: SPIRONOLACTONE 50 MG TABLET (ALDACTONE) PO SCH (08:42)
[2017-03-07] MEDS: ASPIRIN 81 MG TAB.CHEW PO SCH (08:43)
[2017-03-07] MEDS: ISOSORBIDE MONONITRATE 30 MG TAB.ER.24H PO SCH (08:43)
[2017-03-07] MEDS: TERAZOSIN 1 MG PO SCH (08:44)
--- NOTE | 2017-03-07 09:18 | NUR ---
Nutrition Update Marlon Scale 18 noted. Pt admitted for SOB, asthmaticus bronchitis. Diet: CCHO, 2 gm Na BMI: 44.6 kg/m2 RD to follow per nutrition care standards.
--- NOTE | 2017-03-07 10:27 | NUR ---
Faxed DC order Home to [phone] Filed fax confirmation in binder.
[2017-03-07 10:44] VITALS: BP 142/68; PULSE 79; RESP 20; TEMP 98
--- NOTE | 2017-03-07 10:47 | NUR ---
1000 ROUNDS PATIENT RESTING COMFORTABLY, NO COMPLAINTS OF PAIN AT THIS TIME. PATIENT HAS NO NOTABLE SIGNS OF DISTRESS AT THIS TIME. PATIENTS BED IN LOWEST POSITION, FAMILY AT BEDSIDE, CALL LIGHT WITHIN REACH. WILL CONTINUE TO MONITOR PATIENT FOR CHANGES IN STATUS.
[2017-03-07 11:09] VITALS: BP 142/68; PULSE 79; RESP 20; TEMP 98; O2SAT 94
--- NOTE | 2017-03-07 12:15 | NUR ---
DISCHARGE PATIENT DISCHARGED, ALERT AND ORIENTED, NO COMPLAINTS OF PAIN. PATIENT BELONGINGS SENT WITH DAUGHTER YAHAIRA AND PATIENT. PATIENT GIVEN DISCHARGE TEACHING, PATIENT VERBALIZED UNDERSTANDING. PATIENTS HOME MEDICATIONS WERE SENT FROM [facility] AND PHARMACY. PRESCRIPTION SENT WITH FAMILY. IV DISCONTINUED, ARM BANDS REMOVED. PATIENT WHEELED OUT BY ROTOR CASTING MACHINE OPERATOR.
[2017-03-07 12:22] VITALS: BP 140/67; PULSE 77; RESP 18; TEMP 96.8; O2SAT 93
--- NOTE | 2017-03-13 09:30 | NUR ---
Discharge Follow Up Phone Call [employer] phoned patient, , on 03/11/17, 03/12/17, and 03/13/17 and left voicemail messages with offer of assistance and Social Service contact information. No further calls will be made; [employer] will remain available.
== END 2017-03-07 12:12 | disposition home or self-care (01) | DRG 191 ==
LOC: SED 16:01 → STU 17:54 → SMU 03-03 11:08
PROVIDERS: ADMIT Internal Medicine; ATTEND Internal Medicine
DX: J44.1 Chronic obstructive pulmonary disease with (acute) exacerbation (principal); I13.0 Hypertensive heart and chronic kidney disease with heart failure and stage 1 through stage 4 chronic kidney disease, or unspecified chronic kidney disease; Z68.41 Body mass index [BMI] 40.0-44.9, adult; I50.9 Heart failure, unspecified; J84.10 Pulmonary fibrosis, unspecified; K21.9 Gastro-esophageal reflux disease without esophagitis; M06.9 Rheumatoid arthritis, unspecified; N18.3 Chronic kidney disease, stage 3 (moderate); I25.10 Atherosclerotic heart disease of native coronary artery without angina pectoris; E03.9 Hypothyroidism, unspecified; E66.9 Obesity, unspecified; K57.90 Diverticulosis of intestine, part unspecified, without perforation or abscess without bleeding; Z90.49 Acquired absence of other specified parts of digestive tract; Z88.2 Allergy status to sulfonamides; Z88.8 Allergy status to other drugs, medicaments and biological substances; Z88.6 Allergy status to analgesic agent; Z88.4 Allergy status to anesthetic agent; Z91.040 Latex allergy status; Z91.013 Allergy to seafood; Z79.899 Other long term (current) drug therapy; Z86.73 Personal history of transient ischemic attack (TIA), and cerebral infarction without residual deficits; Z90.710 Acquired absence of both cervix and uterus
CPT/HCPCS: 36415; 36600; 71010; 80048; 80053; 81003; 82550-TC; 82553-TC; 82803-TC; 83605; 83735-TC; 83880; 84100-TC; 84484; 85007; 85025; 85027; 85610-TC; 85730-TC; 87040-TC; 93005; 94640; 94760; 96365; 96375; 99285; J1650; J1940; J1956; J2930; J3475

== ENCOUNTER 2021-10-28 14:00 | Emergency (ER) | payer OTHER ==
[~2021-10-28] VITALS: Ht 152.4 cm; Wt 104.3 kg
[~2021-10-28 14:00] MED LIST changes: +ASPI-1155 PO; -ASPI81TA2 PO; -CHOL100038 PO; +CHOL200026 PO; -HYDR-1189 PO; +HYDR-3919 PO; +HYDR200T80 PO; +LEVO125T PO; -LEVO25TA58 PO; +NALT50TA PO; +NITR0.4T47 SL; -PLA200 PO; -PRED5TAB PO
[2021-10-28 14:30] VITALS: BP_SYST 131
[2021-10-28] MEDS ORDERED: NACL 0.9% 1,000 ML IV ONE (15:00)
[2021-10-28 15:51] LABS: BASOPHILS # (AUTO) 0.1 K/uL (0.0-0.2); BASOPHILS % (AUTO) 0.6 % (0.0-2.0); EOSINOPHILS # (AUTO) 0.1 K/uL (0.0-0.4); HEMATOCRIT 37.8 % (36-48); HEMOGLOBIN 11.7 g/dL (12.0-16.0); LYMPHOCYTES # (AUTO) 1.1 K/uL (1.0-5.5); LYMPHOCYTES % (AUTO) 9.4 % (20.5-51.5); MEAN CORPUSCULAR HEMOGLOBIN 23 pg (27-31); MEAN CORPUSCULAR HGB CONC 31 % (32-36); MEAN CORPUSCULAR VOLUME 74 fL (79.0-98.0); MONOCYTES % (AUTO) 8.4 % (1.7-9.3); NEUTROPHILS # (AUTO) 9.3 K/uL (1.8-7.7); NEUTROPHILS % (AUTO) 80.6 % (40.0-70.0); PLATELET COUNT (AUTO) 252 K/uL (130-430); RED BLOOD CELL COUNT(AUTO) 5.11 MIL/uL (4.2-6.2); RED CELL DISTRIBUTION WIDTH 17.8 % (9.0-15.0); WHITE BLOOD COUNT (AUTO) 11.5 K/uL (4.8-10.8)
[2021-10-28 16:03] LABS: ANION GAP 8 (5-15); CALCIUM 9.4 mg/dL (8.4-11.0); CHLORIDE 103 mmol/L (98-107); CREATININE 1.33 mg/dL (0.55-1.30); GLUCOSE 99 mg/dL (70-99); POTASSIUM 4.5 mmol/L (3.5-5.1); SODIUM SERUM 138 mmol/L (136-145); UREA NITROGEN, BLOOD 17 mg/dL (8-21)
[2021-10-28 16:09] LABS: ALANINE AMINOTRANSFERASE 18 U/L (12-78); ALBUMIN 3.9 g/dL (3.4-4.8); ASPARTATE AMINOTRANSFERASE 14 U/L (10-37); LIPASE 85 U/L (73-393); TOTAL BILIRUBIN 0.5 mg/dL (0.0-1.0)
[2021-10-28] MEDS ORDERED: ONDANSETRON HCL 4 MG/2 ML VIAL IVP ONE (16:15)
[2021-10-28] MEDS ORDERED: DIPHENHYDRAMINE INJ 50 MG/ML VIAL IVP ONE (16:15)
[2021-10-28] MEDS ORDERED: fentaNYL CITRATE/PF 100 MCG/2 ML AMP IVP ONE (16:15)
[2021-10-28 16:56] LABS: BILIRUBIN,URINE NEGATIVE (NEGATIVE); BLOOD, URINE NEGATIVE (NEGATIVE); COLOR,URINE YELLOW (YELLOW); GLUCOSE,URINE NEGATIVE (NEGATIVE); KETONES,URINE NEGATIVE (NEGATIVE); LEUKOCYTE ESTERASE ,URINE NEGATIVE (NEGATIVE); NITRITE, URINE NEGATIVE (NEGATIVE); PROTEIN URINE NEGATIVE (NEGATIVE); UROBILINOGEN,URINE 0.2 (0.2-1.0)
[2021-10-28 17:00] LABS: CLARITY/URINE CLEAR (CLEAR)
[2021-10-28] MEDS ORDERED: TRAM50TA2 PO (18:11)
[2021-10-28] MEDS ORDERED: METR500T PO (18:11)
[2021-10-28 18:41] VITALS: BP_SYST 131
== END 2021-10-28 18:41 | disposition home or self-care (01) ==
LOC: SED 14:00
DX: R10.31 Right lower quadrant pain (principal); I10 Essential (primary) hypertension; K21.9 Gastro-esophageal reflux disease without esophagitis; J45.909 Unspecified asthma, uncomplicated; Z88.1 Allergy status to other antibiotic agents; Z88.2 Allergy status to sulfonamides; Z88.8 Allergy status to other drugs, medicaments and biological substances; Z79.84 Long term (current) use of oral hypoglycemic drugs; Z79.899 Other long term (current) drug therapy
CPT/HCPCS: 36415; 71045; 74176; 76376; 80053; 81003; 83690; 85025; 93005; 96361; 96374; 96375; 99285; J1200; J2405; J3010; J7030

== ENCOUNTER 2024-01-14 16:37 | Inpatient (IN) | payer OTHER ==
[~2024-01-14] VITALS: Ht 152.4 cm; Wt 90.3 kg
[~2024-01-14 16:37] MED LIST changes: +ALBU2TAB44 PO; -ASPI-1155 PO; +AUG875 PO; -CHOL200026 PO; +DILT120C95 PO; -FLUT1DIS INH; +GABA-534 PO; -HYDR-3919 PO; -HYT1 PO; +ISOS30TA85 PO; +MONT-40 PO; -NALT50TA PO; +PRED2.5T4 PO; +SIMV-43 PO; -SPIR50TA PO; +SPIR50TA5 PO; -VEN2 PO; -[UNRECOGNIZED DRUG - OTHER] PO
[2024-01-14 16:40] VITALS: BP_SYST 135; PULSE 86; RESP 18; TEMP 97.2; O2SAT 100
[2024-01-14 17:41] LABS: BASOPHILS # (AUTO) 0.1 K/uL (0.0-0.2); BASOPHILS % (AUTO) 0.5 % (0.0-2.0); EOSINOPHILS # (AUTO) 0.1 K/uL (0.0-0.4); EOSINOPHILS % (AUTO) 0.6 % (0.0-4.0); HEMATOCRIT 32.3 % (36-48); HEMOGLOBIN 10.2 g/dL (12.0-16.0); LYMPHOCYTES % (AUTO) 16.3 % (20.5-51.5); MEAN CORPUSCULAR HEMOGLOBIN 28 pg (27-31); MEAN CORPUSCULAR HGB CONC 32 % (32-36); MEAN CORPUSCULAR VOLUME 90 fL (79.0-98.0); MONOCYTES # (AUTO) 1.3 K/uL (0.0-1.0); MONOCYTES % (AUTO) 10.7 % (1.7-9.3); NEUTROPHILS # (AUTO) 8.8 K/uL (1.8-7.7); NEUTROPHILS % (AUTO) 71.9 % (40.0-70.0); PLATELET COUNT (AUTO) 182 K/uL (130-430); RED CELL DISTRIBUTION WIDTH 15.6 % (9.0-15.0); WHITE BLOOD COUNT (AUTO) 12.2 K/uL (4.8-10.8)
[2024-01-14 17:54] LABS: ANION GAP 11 (5-15); CALCIUM 9.7 mg/dL (8.4-11.0); CARBON DIOXIDE 23 mmol/L (23-29); CHLORIDE 109 mmol/L (98-107); CREATININE 1.24 mg/dL (0.55-1.30); GLUCOSE 93 mg/dL (74-106); POTASSIUM 4.1 mmol/L (3.5-5.1); SODIUM SERUM 143 mmol/L (136-145); UREA NITROGEN, BLOOD 16 mg/dL (8-21)
[2024-01-14 17:58] LABS: ALANINE AMINOTRANSFERASE 18 U/L (12-78); ALBUMIN 2.9 g/dL (3.4-4.8); ASPARTATE AMINOTRANSFERASE 26 U/L (10-37); BILIRUBIN,DIRECT 0.3 mg/dL (0.0-0.3); TOTAL BILIRUBIN 0.8 mg/dL (0.0-1.0); TOTAL PROTEIN, SERUM 5.9 g/dL (6.4-8.3)
[2024-01-14 18:47] LABS: BILIRUBIN,URINE NEGATIVE (NEGATIVE); CLARITY/URINE CLEAR (CLEAR); COLOR,URINE YELLOW (YELLOW); GLUCOSE,URINE NEGATIVE (NEGATIVE); KETONES,URINE NEGATIVE (NEGATIVE); LEUKOCYTE ESTERASE ,URINE TRACE (NEGATIVE); NITRITE, URINE NEGATIVE (NEGATIVE); PROTEIN URINE NEGATIVE (NEGATIVE); UROBILINOGEN,URINE 0.2 (0.2-1.0)
[2024-01-14 18:49] LABS: BLOOD, URINE TRACE (NEGATIVE)
[2024-01-14 18:53] LABS: THYROID STIMULATING HORMONE 5.96 uIu/mL (0.34-4.82)
[2024-01-14] MEDS: NACL 0.9% 1,000 ML IV ONE (18:57)
[2024-01-14 19:04] LABS: BACTERIA,URINE FEW /HPF (None Seen); YEAST,URINE Few /HPF (None Seen)
[2024-01-14] MEDS ORDERED: ISOS60TA71 PO (19:04)
[2024-01-14] MEDS ORDERED: NEU300 PO (19:04)
[2024-01-14] MEDS ORDERED: ATRMDI INH (19:04)
[2024-01-14] MEDS ORDERED: LACT1CAP58 PO (19:04)
[2024-01-14] MEDS ORDERED: DILT-32 PO (19:04)
[2024-01-14] MEDS ORDERED: PRED5TAB PO (19:04)
[2024-01-14] MEDS ORDERED: SIMV-343 PO (19:04)
[2024-01-14] MEDS ORDERED: CLOP75TA32 PO (19:04)
[2024-01-14] MEDS ORDERED: ACET325T PO (19:04)
[2024-01-14] MEDS ORDERED: FLUT1BLS3 INH (19:04)
[2024-01-14] MEDS ORDERED: ALBMDI INH (19:04)
[2024-01-14] MEDS ORDERED: HYDR200T80 PO (19:04)
[2024-01-14 19:05] LABS: MUCUS,URINE 1+ /LPF (None Seen)
[2024-01-14] MEDS: CIPROFLOXACIN LACT 400 MG/D5W 200 ML IV ONE (19:43)
[2024-01-14] MEDS: ASPIRIN 81 MG TAB.CHEW PO ONE (19:58)
[2024-01-14] MEDS: NACL 0.9% 1,000 ML IV SCH (22:00)
[2024-01-14 22:10] VITALS: BP_SYST 124; PULSE 83; RESP 18; TEMP 97.8; O2SAT 98
[2024-01-15 00:31] VITALS: BP_SYST 115; PULSE 80; RESP 18; TEMP 98; O2SAT 98
[2024-01-15 08:02] VITALS: BP_SYST 116; PULSE 78; RESP 18; TEMP 98.1; O2SAT 96
[2024-01-15] MEDS: cefTRIAXone 1 GM IVPB PREMIX 50 ML IV SCH (08:50)
[2024-01-15 09:01] VITALS: O2SAT 96
[2024-01-15] MEDS ORDERED: IPRA3AMP9 INH (10:18)
[2024-01-15 11:12] VITALS: BP_SYST 134; PULSE 100; RESP 16; TEMP 97.9; O2SAT 93
[2024-01-15 14:00] VITALS: BP_SYST 130; PULSE 75; RESP 16; TEMP 98.6; O2SAT 98
[2024-01-15] MEDS: REGADENOSON 0.4 MG/5 ML SYRINGE IVP ONE (15:00)
[2024-01-15] MEDS: ASPIRIN 81 MG TABLET(ECOTRIN) PO ONE (16:33)
[2024-01-15] MEDS: ATORVASTATIN 20 MG TABLET PO ONE (16:34)
[2024-01-15 19:55] VITALS: BP_SYST 120; PULSE 76; RESP 18; TEMP 98.1; O2SAT 98
[2024-01-16] VITALS (8 sets, daily range): BP systolic 99–129; PULSE 62–81; RESP 16–18; TEMP 97–98.2; O2SAT 95–99
[2024-01-16 05:49] LABS: MEAN CORPUSCULAR HEMOGLOBIN 29 pg (27-31); MEAN CORPUSCULAR HGB CONC 32 % (32-36); MEAN CORPUSCULAR VOLUME 89 fL (79.0-98.0); PLATELET COUNT (AUTO) 148 K/uL (130-430); RED BLOOD CELL COUNT(AUTO) 3.15 MIL/uL (4.2-6.2); RED CELL DISTRIBUTION WIDTH 15.8 % (9.0-15.0); WHITE BLOOD COUNT (AUTO) 8.6 K/uL (4.8-10.8)
[2024-01-16 06:01] LABS: ANION GAP 11 (5-15); CALCIUM 8.4 mg/dL (8.4-11.0); CARBON DIOXIDE 20 mmol/L (23-29); CHLORIDE 115 mmol/L (98-107); CREATININE 0.97 mg/dL (0.55-1.30); GLUCOSE 72 mg/dL (74-106); POTASSIUM 3.2 mmol/L (3.5-5.1); SODIUM SERUM 146 mmol/L (136-145); UREA NITROGEN, BLOOD 11 mg/dL (8-21)
[2024-01-16 08:45] LABS: ATYPICAL LYMPHOCYTES % 1 % (0-0); BAND % (MANUAL) 1 % (0-6); EOSINOPHILS % (MANUAL) 2 % (0-7); LYMPHOCYTES % (MANUAL) 24 % (20-46); MONOCYTES % (MANUAL) 7 % (0-11); PLATELET ESTIMATE ADEQUATE (ADEQUATE); POLYCHROMASIA N
[2024-01-16 08:46] LABS: ANISOCYTOSIS 1+; HYPOCHROMASIA 2+
[2024-01-16] MEDS: ATORVASTATIN 20 MG TABLET PO SCH (09:52)
[2024-01-16] MEDS: ASPIRIN 81 MG TABLET(ECOTRIN) PO SCH (09:53)
[2024-01-16] MEDS: MEGESTROL ACETATE 40 MG TABLET PO ONE (15:35)
[2024-01-16] MEDS: PANTOPRAZOLE SODIUM 40 MG TAB PO ONE (15:36)
[2024-01-16] MEDS: HYDROXYCHLOROQUINE SULFATE 200 MG TABLET PO ONE (15:36)
[2024-01-16] MEDS: MONTELUKAST 10 MG TABLET PO SCH (17:15)
[2024-01-16] MEDS: MIRTAZAPINE 15 MG TABLET PO SCH (21:00)
[2024-01-16] MEDS: MEGESTROL ACETATE 40 MG TABLET PO SCH (22:21)
[2024-01-17 00:19] VITALS: BP_SYST 131; PULSE 76; RESP 18; TEMP 97.6; O2SAT 98
[2024-01-17] MEDS: LEVOTHYROXINE SODIUM 0.125 MG TABLET PO SCH (06:34)
[2024-01-17 07:47] VITALS: BP_SYST 131; PULSE 71; RESP 18; TEMP 96.6; O2SAT 96
[2024-01-17 07:56] VITALS: O2SAT 98
[2024-01-17] MEDS: predniSONE 5 MG TABLET PO SCH (09:07)
[2024-01-17] MEDS: ATORVASTATIN 20 MG TABLET PO SCH (09:08)
[2024-01-17] MEDS: HYDROXYCHLOROQUINE SULFATE 200 MG TABLET PO SCH (09:08)
[2024-01-17] MEDS: PANTOPRAZOLE SODIUM 40 MG TAB PO SCH (09:11)
[2024-01-17 11:21] VITALS: BP_SYST 105; PULSE 77; RESP 16; TEMP 96.8; O2SAT 96
[2024-01-17] MEDS ORDERED: MIRT-147 PO (15:10)
[2024-01-17] MEDS ORDERED: LEVO125T PO (15:11)
[2024-01-17 15:21] VITALS: BP_SYST 124; PULSE 78; RESP 14; TEMP 96.9; O2SAT 98
[2024-01-17 20:15] VITALS: O2SAT 99
[2024-01-18 00:26] VITALS: BP_SYST 125; PULSE 76; RESP 16; TEMP 96.9; O2SAT 100
[2024-01-18] MEDS: LEVOTHYROXINE SODIUM 0.15 MG TABLET PO SCH (06:34)
[2024-01-18] MEDS ORDERED: LEVOTHYROXINE SODIUM 0.125 MG TABLET PO SCH (07:00)
[2024-01-18 08:45] VITALS: O2SAT 98
[2024-01-18 09:11] VITALS: BP_SYST 131; PULSE 70; RESP 18; TEMP 97.3; O2SAT 98
[2024-01-18 11:19] VITALS: BP_SYST 122; PULSE 72; RESP 16; TEMP 98.2; O2SAT 94
[2024-01-18 12:09] VITALS: BP_SYST 122; PULSE 72; RESP 18; TEMP 98.2; O2SAT 95
== END 2024-01-18 13:35 | disposition home health service (06) | DRG 644 ==
LOC: SED 16:37 → STU 20:14 → OBSVTOIN 20:14 → STU 21:27 → SMU 01-16 17:20
PROVIDERS: ADMIT Specialist; ATTEND Specialist
DX: E03.9 Hypothyroidism, unspecified (principal); I24.89 Other forms of acute ischemic heart disease; R62.7 Adult failure to thrive; N18.9 Chronic kidney disease, unspecified; J45.909 Unspecified asthma, uncomplicated; I25.10 Atherosclerotic heart disease of native coronary artery without angina pectoris; F32.A Depression, unspecified; Z79.899 Other long term (current) drug therapy; Z68.38 Body mass index [BMI] 38.0-38.9, adult; Z86.73 Personal history of transient ischemic attack (TIA), and cerebral infarction without residual deficits; Z79.51 Long term (current) use of inhaled steroids; Z91.040 Latex allergy status; Z88.5 Allergy status to narcotic agent
CPT/HCPCS: 36415; 71045; 76700; 80048; 80076; 81000; 81001; 81015; 82140; 84443; 84484; 85007; 85025; 85027; 85651; 87040; 87086; 93005; 93017; 96361; 96365; 99285; A9500; G0378; J0696; J0744; J2785; J7512

== ENCOUNTER 2024-04-08 23:29 | Inpatient (IN) | payer OTHER ==
[~2024-04-08] VITALS: Ht 152.4 cm; Wt 90.7 kg
[~2024-04-08 23:29] MED LIST changes: +ACET325T PO; -ALBU2TAB44 PO; -AUG875 PO; -CLOP75TA2 PO; -DILT120C95 PO; +FLUT1BLS3 INH; -GABA-529 PO; -GABA-534 PO; +IPRA3AMP9 INH; -ISOS30TA85 PO; +LACT1CAP58 PO; +MIRT-147 PO; -NITR0.4T47 SL; -PRED2.5T4 PO; +PRED5TAB PO; +SIMV-343 PO; -SIMV-43 PO; -SPIR50TA5 PO; -VALS80TA2 PO
[2024-04-08 23:30] VITALS: BP_SYST 108; PULSE 68; RESP 20; TEMP 98; O2SAT 98
[2024-04-09] VITALS (8 sets, daily range): BP systolic 120–131; PULSE 81–95; RESP 18; TEMP 97.2–98.2; O2SAT 96–98
[2024-04-09] MEDS ORDERED: VALS160T2 PO (00:02)
[2024-04-09] MEDS ORDERED: ASA81 PO (00:02)
[2024-04-09] MEDS ORDERED: PANTOPRAZOLE SODIUM 40 MG/VIAL (PROTONIX) ONE (00:19)
[2024-04-09] MEDS: NACL 0.9% 500 ML IV ONE (00:24)
[2024-04-09] MEDS: PANTOPRAZOLE SODIUM 40 MG in NS 50 ML IV SCH (00:38)
[2024-04-09] MEDS: IPRATROPIUM BROM 0.5 MG/2.5 ML VIAL.NEB (ATROVENT) INH ONE (00:41)
[2024-04-09] MEDS: ALBUTEROL SULFATE 0.083% 2.5 MG/3 ML VIAL.NEB INH ONE (00:41)
[2024-04-09] MEDS: NOREPINEPHRINE BITARTRATE 4 MG in NS 246 ML IV ONE (00:45)
[2024-04-09] MEDS ORDERED: NOREPINEPHRINE 4 MG/4 ML VIAL IV ONE (00:46)
[2024-04-09] MEDS: OCTREOTIDE ACETATE 500 MCG in NS 99.5 ML IV ONE (01:21)
[2024-04-09 02:20] LABS: BASOPHILS % (AUTO) 0.1 % (0.0-2.0); HEMATOCRIT 26.1 % (36-48); HEMOGLOBIN 8.5 g/dL (12.0-16.0); LYMPHOCYTES # (AUTO) 1.9 K/uL (1.0-5.5); LYMPHOCYTES % (AUTO) 9.6 % (20.5-51.5); MEAN CORPUSCULAR HEMOGLOBIN 26 pg (27-31); MEAN CORPUSCULAR HGB CONC 33 % (32-36); MEAN CORPUSCULAR VOLUME 80 fL (79.0-98.0); MONOCYTES # (AUTO) 1.2 K/uL (0.0-1.0); MONOCYTES % (AUTO) 6.1 % (1.7-9.3); NEUTROPHILS # (AUTO) 16.9 K/uL (1.8-7.7); NEUTROPHILS % (AUTO) 84.2 % (40.0-70.0); PLATELET COUNT (AUTO) 126 K/uL (130-430); RED BLOOD CELL COUNT(AUTO) 3.28 MIL/uL (4.2-6.2); RED CELL DISTRIBUTION WIDTH 15.7 % (9.0-15.0); WHITE BLOOD COUNT (AUTO) 20.1 K/uL (4.8-10.8)
[2024-04-09 02:24] LABS: ALANINE AMINOTRANSFERASE 28 U/L (12-78); ALBUMIN 2.6 g/dL (3.4-4.8); ANION GAP 8 (5-15); ASPARTATE AMINOTRANSFERASE 15 U/L (10-37); BILIRUBIN,DIRECT 0.3 mg/dL (0.0-0.3); CALCIUM 7.5 mg/dL (8.4-11.0); CARBON DIOXIDE 26 mmol/L (23-29); CHLORIDE 109 mmol/L (98-107); CREATININE 1.54 mg/dL (0.55-1.30); GLUCOSE 157 mg/dL (74-106); POTASSIUM 4.1 mmol/L (3.5-5.1); SODIUM SERUM 143 mmol/L (136-145); TOTAL BILIRUBIN 1.1 mg/dL (0.0-1.0); TOTAL PROTEIN, SERUM 4.9 g/dL (6.4-8.3); UREA NITROGEN, BLOOD 38 mg/dL (8-21)
[2024-04-09] MEDS ORDERED: IPRATROPIUM/ALBUTEROL SULFATE 3 ML AMPUL.NEB (DUONEB) ONE (09:04)
[2024-04-09] MEDS: D5/0.45 NS 1,000 ML IV ONE (09:42)
[2024-04-09] MEDS: IPRATROPIUM/ALBUTEROL SULFATE 3 ML AMPUL.NEB (DUONEB) INH SCH (11:40)
[2024-04-09] MEDS ORDERED: POTA8CAP20 PO (12:38)
[2024-04-09] MEDS ORDERED: FURO20TA4 PO (12:38)
[2024-04-09] MEDS ORDERED: D-ME120S28 PO (12:38)
[2024-04-09] MEDS ORDERED: MEGE400O46 PO (12:41)
[2024-04-09] MEDS ORDERED: ISOS60TA71 PO (12:42)
[2024-04-09] MEDS: METHYLPREDNISOLONE SOD SUCC 40 MG/ML VIAL IVP SCH (14:00)
[2024-04-09 14:10] LABS: BASOPHILS % (AUTO) 0.1 % (0.0-2.0); EOSINOPHILS % (AUTO) 0.2 % (0.0-4.0); HEMATOCRIT 27.5 % (36-48); HEMOGLOBIN 8.3 g/dL (12.0-16.0); LYMPHOCYTES # (AUTO) 3.4 K/uL (1.0-5.5); LYMPHOCYTES % (AUTO) 16.4 % (20.5-51.5); MEAN CORPUSCULAR HEMOGLOBIN 26 pg (27-31); MEAN CORPUSCULAR HGB CONC 30 % (32-36); MEAN CORPUSCULAR VOLUME 85 fL (79.0-98.0); MONOCYTES # (AUTO) 2.1 K/uL (0.0-1.0); NEUTROPHILS # (AUTO) 15.1 K/uL (1.8-7.7); NEUTROPHILS % (AUTO) 73.3 % (40.0-70.0); PLATELET COUNT (AUTO) 121 K/uL (130-430); RED BLOOD CELL COUNT(AUTO) 3.25 MIL/uL (4.2-6.2); RED CELL DISTRIBUTION WIDTH 16.4 % (9.0-15.0); WHITE BLOOD COUNT (AUTO) 20.6 K/uL (4.8-10.8)
[2024-04-09] MEDS ORDERED: ONDANSETRON HCL 4 MG/2 ML VIAL IVP PRN (18:00)
[2024-04-09] MEDS ORDERED: LORazepam 2 MG/ML VIAL IVP PRN (18:00)
[2024-04-09] MEDS: D5/0.45 NS 1,000 ML IV SCH (20:33)
[2024-04-09] MEDS: cefTRIAXone 1 GM IVPB PREMIX 50 ML IV ONE (21:10)
[2024-04-09] MEDS: cefTRIAXone 1 GM in D5W 50 ML IV SCH (21:35)
[2024-04-09] MEDS: PANTOPRAZOLE SODIUM 40 MG/VIAL (PROTONIX) IVP SCH (21:35)
[2024-04-09] MEDS: metroNIDAZOLE 500 mg/NS 200 ML IV ONE (21:52)
[2024-04-09] MEDS: FUROSEMIDE 20 MG/2 ML VIAL IVP ONE (22:07)
[2024-04-09] MEDS: metroNIDAZOLE 500 mg/NS 100 ML IV SCH (22:08)
[2024-04-09 23:11] LABS: BILIRUBIN,URINE NEGATIVE (NEGATIVE); BLOOD, URINE 3+ (NEGATIVE); CLARITY/URINE SL CLOUDY (CLEAR); COLOR,URINE ORANGE (YELLOW); GLUCOSE,URINE NEGATIVE (NEGATIVE); KETONES,URINE NEGATIVE (NEGATIVE); LEUKOCYTE ESTERASE ,URINE TRACE (NEGATIVE); NITRITE, URINE NEGATIVE (NEGATIVE); PROTEIN URINE TRACE (NEGATIVE); UROBILINOGEN,URINE 0.2 (0.2-1.0)
[2024-04-10] VITALS (13 sets, daily range): BP systolic 113–123; PULSE 85–94; RESP 16–18; TEMP 97.2–97.7; O2SAT 97–100
[2024-04-10 00:07] LABS: BACTERIA,URINE None Seen /HPF (None Seen)
[2024-04-10] MEDS: KETOROLAC TROMETHAMINE 15 MG VIAL IVP PRN (04:43)
[2024-04-10 06:30] LABS: HEMATOCRIT 23.7 % (36-48); HEMOGLOBIN 7.7 g/dL (12.0-16.0); LYMPHOCYTES # (AUTO) 0.3 K/uL (1.0-5.5); LYMPHOCYTES % (AUTO) 2.4 % (20.5-51.5); MEAN CORPUSCULAR HEMOGLOBIN 26 pg (27-31); MEAN CORPUSCULAR HGB CONC 32 % (32-36); MEAN CORPUSCULAR VOLUME 81 fL (79.0-98.0); MONOCYTES # (AUTO) 0.2 K/uL (0.0-1.0); MONOCYTES % (AUTO) 1.5 % (1.7-9.3); NEUTROPHILS # (AUTO) 13.2 K/uL (1.8-7.7); NEUTROPHILS % (AUTO) 96.1 % (40.0-70.0); PLATELET COUNT (AUTO) 101 K/uL (130-430); RED BLOOD CELL COUNT(AUTO) 2.92 MIL/uL (4.2-6.2); RED CELL DISTRIBUTION WIDTH 15.5 % (9.0-15.0); WHITE BLOOD COUNT (AUTO) 13.8 K/uL (4.8-10.8)
[2024-04-10 06:34] LABS: ANION GAP 11 (5-15); CALCIUM 7.8 mg/dL (8.4-11.0); CARBON DIOXIDE 22 mmol/L (23-29); CHLORIDE 107 mmol/L (98-107); CREATININE 1.54 mg/dL (0.55-1.30); GLUCOSE 244 mg/dL (74-106); PHOSPHORUS 4.1 mg/dL (2.7-4.5); POTASSIUM 3.6 mmol/L (3.5-5.1); SODIUM SERUM 140 mmol/L (136-145); UREA NITROGEN, BLOOD 33 mg/dL (8-21)
[2024-04-10] MEDS: CALCIUM GLUC 2 GM/100ML-NACL 100 ML IV ONE (10:52)
[2024-04-10] MEDS: ACETYLCYSTEINE 20% 4 ML VIAL (RT) INH SCH (19:50)
[2024-04-11] VITALS (12 sets, daily range): BP systolic 103–125; PULSE 83–88; RESP 16–18; TEMP 97.2–97.9; O2SAT 94–100
[2024-04-11 07:11] LABS: ANION GAP 9 (5-15); CALCIUM 8.9 mg/dL (8.4-11.0); CARBON DIOXIDE 24 mmol/L (23-29); CHLORIDE 108 mmol/L (98-107); CREATININE 1.39 mg/dL (0.55-1.30); GLUCOSE 236 mg/dL (74-106); PHOSPHORUS 4.1 mg/dL (2.7-4.5); POTASSIUM 3.2 mmol/L (3.5-5.1); SODIUM SERUM 141 mmol/L (136-145); UREA NITROGEN, BLOOD 28 mg/dL (8-21)
[2024-04-11 07:42] LABS: BASOPHILS % (AUTO) 0.1 % (0.0-2.0); LYMPHOCYTES # (AUTO) 0.5 K/uL (1.0-5.5); MEAN CORPUSCULAR HEMOGLOBIN 26 pg (27-31); MEAN CORPUSCULAR HGB CONC 32 % (32-36); MEAN CORPUSCULAR VOLUME 82 fL (79.0-98.0); MONOCYTES # (AUTO) 0.6 K/uL (0.0-1.0); MONOCYTES % (AUTO) 3.9 % (1.7-9.3); NEUTROPHILS # (AUTO) 15.4 K/uL (1.8-7.7); PLATELET COUNT (AUTO) 106 K/uL (130-430); RED BLOOD CELL COUNT(AUTO) 2.64 MIL/uL (4.2-6.2); RED CELL DISTRIBUTION WIDTH 15.7 % (9.0-15.0); WHITE BLOOD COUNT (AUTO) 16.5 K/uL (4.8-10.8)
[2024-04-11 08:24] LABS: HEMOGLOBIN 6.9 g/dL (12.0-16.0)
[2024-04-11 08:26] LABS: HEMATOCRIT 21.6 % (36-48)
[2024-04-11 08:52] LABS: ERYTHROCYTE SEDIMENTATION RATE < 1 MM/HR (0-20)
[2024-04-11 10:08] LABS: TOTAL IRON BIND. CAPACITY 229 ug/dL (250-450)
[2024-04-12] VITALS (9 sets, daily range): BP systolic 106–110; PULSE 81–88; RESP 17–18; TEMP 97.3–98.1; O2SAT 94–100
[2024-04-12 05:26] LABS: BASOPHILS % (AUTO) 0.1 % (0.0-2.0); HEMATOCRIT 25.5 % (36-48); HEMOGLOBIN 8.1 g/dL (12.0-16.0); LYMPHOCYTES # (AUTO) 0.4 K/uL (1.0-5.5); LYMPHOCYTES % (AUTO) 3.1 % (20.5-51.5); MEAN CORPUSCULAR HEMOGLOBIN 27 pg (27-31); MEAN CORPUSCULAR HGB CONC 32 % (32-36); MEAN CORPUSCULAR VOLUME 83 fL (79.0-98.0); MONOCYTES # (AUTO) 0.3 K/uL (0.0-1.0); MONOCYTES % (AUTO) 2.5 % (1.7-9.3); NEUTROPHILS # (AUTO) 12.9 K/uL (1.8-7.7); NEUTROPHILS % (AUTO) 94.3 % (40.0-70.0); PLATELET COUNT (AUTO) 103 K/uL (130-430); RED BLOOD CELL COUNT(AUTO) 3.06 MIL/uL (4.2-6.2); RED CELL DISTRIBUTION WIDTH 16.6 % (9.0-15.0); WHITE BLOOD COUNT (AUTO) 13.6 K/uL (4.8-10.8)
[2024-04-12 05:34] LABS: ERYTHROCYTE SEDIMENTATION RATE < 1 MM/HR (0-20)
[2024-04-12 05:58] LABS: ALANINE AMINOTRANSFERASE 23 U/L (12-78); ALBUMIN 2.5 g/dL (3.4-4.8); ANION GAP 13 (5-15); ASPARTATE AMINOTRANSFERASE < 5 U/L (10-37); CALCIUM 8.2 mg/dL (8.4-11.0); CARBON DIOXIDE 21 mmol/L (23-29); CHLORIDE 107 mmol/L (98-107); CREATININE 1.49 mg/dL (0.55-1.30); GLUCOSE 313 mg/dL (74-106); PHOSPHORUS 3.3 mg/dL (2.7-4.5); POTASSIUM 3.2 mmol/L (3.5-5.1); SODIUM SERUM 141 mmol/L (136-145); TOTAL BILIRUBIN 0.5 mg/dL (0.0-1.0); TOTAL PROTEIN, SERUM 4.7 g/dL (6.4-8.3); UREA NITROGEN, BLOOD 24 mg/dL (8-21)
[2024-04-12] MEDS: SOD FERRIC GLUC COMPLEX/SUC 125 MG in NS 100 ML IV SCH (15:16)
[2024-04-12] MEDS: NACL 0.9% 1,000 ML IV SCH (18:02)
[2024-04-12] MEDS: METHYLPREDNISOLONE SOD SUCC 40 MG/ML VIAL IVP SCH (21:44)
[2024-04-13] VITALS (8 sets, daily range): BP systolic 106–123; PULSE 78–82; RESP 17–18; TEMP 97.2–98.6; O2SAT 98–100
[2024-04-13 05:30] LABS: BASOPHILS % (AUTO) 0.1 % (0.0-2.0); HEMATOCRIT 25.4 % (36-48); HEMOGLOBIN 8.3 g/dL (12.0-16.0); LYMPHOCYTES # (AUTO) 0.6 K/uL (1.0-5.5); MEAN CORPUSCULAR HEMOGLOBIN 27 pg (27-31); MEAN CORPUSCULAR HGB CONC 33 % (32-36); MEAN CORPUSCULAR VOLUME 83 fL (79.0-98.0); MONOCYTES # (AUTO) 0.4 K/uL (0.0-1.0); MONOCYTES % (AUTO) 3.1 % (1.7-9.3); NEUTROPHILS # (AUTO) 11.3 K/uL (1.8-7.7); NEUTROPHILS % (AUTO) 91.8 % (40.0-70.0); PLATELET COUNT (AUTO) 112 K/uL (130-430); RED BLOOD CELL COUNT(AUTO) 3.07 MIL/uL (4.2-6.2); WHITE BLOOD COUNT (AUTO) 12.3 K/uL (4.8-10.8)
[2024-04-13 05:53] LABS: ALANINE AMINOTRANSFERASE 23 U/L (12-78); ALBUMIN 2.6 g/dL (3.4-4.8); ANION GAP 10 (5-15); ASPARTATE AMINOTRANSFERASE < 5 U/L (10-37); CALCIUM 8.2 mg/dL (8.4-11.0); CARBON DIOXIDE 25 mmol/L (23-29); CHLORIDE 110 mmol/L (98-107); CREATININE 1.32 mg/dL (0.55-1.30); GLUCOSE 221 mg/dL (74-106); POTASSIUM 3.6 mmol/L (3.5-5.1); SODIUM SERUM 145 mmol/L (136-145); TOTAL BILIRUBIN 0.9 mg/dL (0.0-1.0); TOTAL PROTEIN, SERUM 4.7 g/dL (6.4-8.3); UREA NITROGEN, BLOOD 25 mg/dL (8-21)
[2024-04-13] MEDS: POLYETHYLENE GLYCOL 3350, 17 GM/ POWD.PACK PO ONE (11:53)
[2024-04-13] MEDS: BISACODYL 10 MG/SUPPOSITORY RC ONE (11:57)
[2024-04-13] MEDS: POLYETHYLENE GLYCOL 3350, 17 GM/ POWD.PACK PO SCH (21:33)
[2024-04-14] VITALS (7 sets, daily range): BP systolic 107–120; PULSE 71–75; RESP 16–18; TEMP 97.6–97.8; O2SAT 98–100
[2024-04-14 06:01] LABS: BASOPHILS % (AUTO) 0.1 % (0.0-2.0); EOSINOPHILS % (AUTO) 0.1 % (0.0-4.0); HEMATOCRIT 24.6 % (36-48); LYMPHOCYTES # (AUTO) 0.5 K/uL (1.0-5.5); LYMPHOCYTES % (AUTO) 4.4 % (20.5-51.5); MEAN CORPUSCULAR HEMOGLOBIN 27 pg (27-31); MEAN CORPUSCULAR HGB CONC 33 % (32-36); MEAN CORPUSCULAR VOLUME 83 fL (79.0-98.0); MONOCYTES # (AUTO) 0.4 K/uL (0.0-1.0); MONOCYTES % (AUTO) 3.4 % (1.7-9.3); NEUTROPHILS # (AUTO) 9.7 K/uL (1.8-7.7); PLATELET COUNT (AUTO) 108 K/uL (130-430); RED BLOOD CELL COUNT(AUTO) 2.96 MIL/uL (4.2-6.2); RED CELL DISTRIBUTION WIDTH 16.8 % (9.0-15.0); WHITE BLOOD COUNT (AUTO) 10.6 K/uL (4.8-10.8)
[2024-04-14 07:36] LABS: ALANINE AMINOTRANSFERASE 29 U/L (12-78); ALBUMIN 2.4 g/dL (3.4-4.8); ANION GAP 7 (5-15); CALCIUM 8.1 mg/dL (8.4-11.0); CARBON DIOXIDE 25 mmol/L (23-29); CHLORIDE 115 mmol/L (98-107); CREATININE 1.12 mg/dL (0.55-1.30); GLUCOSE 241 mg/dL (74-106); POTASSIUM 4.3 mmol/L (3.5-5.1); SODIUM SERUM 147 mmol/L (136-145); TOTAL BILIRUBIN 0.7 mg/dL (0.0-1.0); TOTAL PROTEIN, SERUM 4.4 g/dL (6.4-8.3); UREA NITROGEN, BLOOD 31 mg/dL (8-21)
[2024-04-14 08:19] LABS: ASPARTATE AMINOTRANSFERASE 14 U/L (10-37)
[2024-04-14] MEDS ORDERED: DOCU-144 PO (14:06)
[2024-04-14] MEDS ORDERED: POLY17PO4 PO (14:06)
[2024-04-14] MEDS ORDERED: FERR324T11 PO (14:06)
[2024-04-14] MEDS ORDERED: LEVO-62 PO ×2 (14:11→14:49)
[2024-04-14] MEDS ORDERED: METH-776 PO (14:11)
[2024-04-14] MEDS ORDERED: L.RH1CAP PO (14:49)
== END 2024-04-14 14:56 | disposition home health service (06) | DRG 377 ==
LOC: SED 23:29 → SMU 04-09 04:50 → STU 04-09 22:06 → SMU 04-10 10:37
PROVIDERS: ADMIT Preventive Medicine Preventive Medicine/Occupational Environmental Medicine; ATTEND Specialist
PROC: 30243N1 Transfusion of Nonautologous Red Blood Cells into Central Vein, Percutaneous Approach (ICD-10-PCS; principal; 2024-04-11)
DX: K57.91 Diverticulosis of intestine, part unspecified, without perforation or abscess with bleeding (principal); E43 Unspecified severe protein-calorie malnutrition; J96.01 Acute respiratory failure with hypoxia; D62 Acute posthemorrhagic anemia; J81.1 Chronic pulmonary edema; J44.0 Chronic obstructive pulmonary disease with (acute) lower respiratory infection; N17.9 Acute kidney failure, unspecified; N39.0 Urinary tract infection, site not specified; I12.9 Hypertensive chronic kidney disease with stage 1 through stage 4 chronic kidney disease, or unspecified chronic kidney disease; E83.51 Hypocalcemia; E78.5 Hyperlipidemia, unspecified; E03.9 Hypothyroidism, unspecified; D69.6 Thrombocytopenia, unspecified; J20.9 Acute bronchitis, unspecified; K21.9 Gastro-esophageal reflux disease without esophagitis; N18.9 Chronic kidney disease, unspecified; M79.7 Fibromyalgia; E80.6 Other disorders of bilirubin metabolism; T38.0X5A Adverse effect of glucocorticoids and synthetic analogues, initial encounter; E87.6 Hypokalemia; Z96.652 Presence of left artificial knee joint; Y92.89 Other specified places as the place of occurrence of the external cause; Z85.51 Personal history of malignant neoplasm of bladder; Z86.73 Personal history of transient ischemic attack (TIA), and cerebral infarction without residual deficits; Z90.49 Acquired absence of other specified parts of digestive tract; Z98.42 Cataract extraction status, left eye; Z98.41 Cataract extraction status, right eye; Z88.2 Allergy status to sulfonamides; Z88.5 Allergy status to narcotic agent; Z91.040 Latex allergy status; Z91.013 Allergy to seafood; Z91.018 Allergy to other foods; Z79.82 Long term (current) use of aspirin; Z79.899 Other long term (current) drug therapy; Z68.39 Body mass index [BMI] 39.0-39.9, adult; E66.9 Obesity, unspecified; I95.9 Hypotension, unspecified; R73.9 Hyperglycemia, unspecified
CPT/HCPCS: 36415; 71045; 78278; 80048; 80053; 80076; 81000; 81001; 81015; 82272; 83540; 83550; 83605; 83735; 84100; 85025; 85651; 86738; 86886; 86900; 86901; 86920; 87040; 87086; 94070; 94640; 94760; 97110-GP; 97116-GP; 97530-GP; 99285; G0378; J0696; J1030; J1885; J1940; J2470; J2916; J3490; J7060; J7608; P9021